=== PATIENT | male | born 1975 | race Caucasian/White ===

== ENCOUNTER 2017-02-13 08:24 | Inpatient (IN) | payer BC, MEDICARE ==
--- NOTE | ~2017-02-13 | OP ---
Record Of Operation [facility] [address] [place]. [address] NAME: JAN YA : 71 STATUS : DIS IN PAT#: [id number] AGE: 41 ADM/REG DATE : 02/13/17 MR#: [id number] REPORT SERV DATE: 03/15/17 DICTATED BY: BRITTANI VALERO II DATE: 02/16/17 REPORT STATUS : Draft TRANSCRIBED BY: MARTÍNEZ DATE: 02/16/17 DATE OF PROCEDURE: 02/13/2017 PREOPERATIVE DIAGNOSES: 1. 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 2. Failed spinal column stimulator battery. POSTOPERATIVE DIAGNOSES: 1. 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 2. Failed spinal column stimulator battery. PROCEDURE: 1. Lumbar laminectomy and facetectomy for decompression of the L4 and L5 nerve roots. 2. Interbody arthrodesis at L4-L5. 3. Application of prosthetic device at L4-L5. 4. Posterolateral arthrodesis at L4-L5. 5. Use of local autograft, allograft substitute, and bone morphogenetic protein. 6. Use of the microscope and stereotactic spinal imaging. 7. Replacement of spinal column stimulator battery generator. FLUIDS: 1600 mL LR. ESTIMATED BLOOD LOSS: 150 mL. DRAINS: One drain. COMPLICATIONS: None. IMPLANTS: Alpha-Rodrigo and a Medtronic connector. PREOPERATIVE HISTORY: This is a friendly 41-year-old gentleman, who had surgery at L5-S1 many years ago. He has also had a spinal column stimulator implanted. He came to see me regarding his back and leg pains. I discussed with him that I did not feel surgery would greatly decrease his back pain, but I feel surgery should give him a very good chance of decreasing his radiculopathy. We discussed the rates of success of the surgery to decrease back and leg pain respectively. We discussed the fact that there were risks of course. We discussed the risks. His is also a nurse and she was present for one of the two preoperative conversations. I saw him twice in the office and then of course again in preoperative holding. The plan was also to replace his battery generator and possibly the lead if testing intraoperatively determined that the lead was nonfunctional. DESCRIPTION OF PROCEDURE: After informed consent was obtained, the patient was brought to the operating room at his request and general anesthesia achieved. He was placed in the prone position and the back was prepped and draped in a sterile fashion. The stereotactic Record Of Operation [facility] [address] [place]. [address] NAME: JAN YA : 71 STATUS : DIS IN PAT#: [id number] AGE: 41 ADM/REG DATE : 02/13/17 MR#: [id number] REPORT SERV DATE: 03/15/17 DICTATED BY: BRITTANI VALERO II DATE: 02/16/17 REPORT STATUS : Draft TRANSCRIBED BY: MODEverett DATE: 02/16/17 spinal pin was placed into the right iliac crest and the intraoperative CT scan completed. Stereotactic guidance was then used throughout the remainder of the case. At this point, the minimally invasive incision was performed at L4-5. We then worked down to the hardware at L5-S1 and dissected upon the manuelito. At this point, the transverse processes were also dissected upon at L4 and L5. The medial to lateral blades were also placed. At this point with the microscope in place, we then performed the facetectomy at L4-5. A [id number] decompression was achieved. The facet was extremely hypertrophic and there was severe spinal stenosis. This took an extremely long amount of time given the severity of the stenosis. Ultimately, we were able to perform the bilateral decompression through the unilateral approach. The dura was then well visualized in the L4 and L5 nerve roots, now acceptably decompressed. Both exhibited severe compression upon them prior to the facetectomy. At this point, the interbody arthrodesis was initiated with the diskectomy. The endplates were now prepared with the pituitary rongeurs, Kerrison rongeurs, and the curettes. The area was now irrigated and punctate bleeding bone identified on both endplates. The prosthetic device was then well placed into the anterior column. We also placed local autograft into the disk space along with a small amount of bone morphogenetic protein. At this point, the pedicle screw was applied into L4 bilaterally. A percutaneous screw was used on the right. We then dissected down to the right also at the manuelito between L5 and S1. A Temnos screw manuelito connector was used. Overall, this was done for two reasons, one was to hopefully decrease the amount of dissection to remove the old hardware and secondly the old hardware appeared to be proprietary in terms of its locking nut and I did not feel that we would be able to safely or expediently remove the hardware. At this point, a repeat CT scan confirmed acceptable placement of the implants. The final tightening was performed. Next, the decortication was performed of the transverse processes of L4 and L5. Local autograft was placed along the decorticated surfaces along with allograft substitute and bone morphogenetic protein. A deep drain was placed on the left followed by a standard closure, and the patient was then extubated and transferred to PACU in stable condition. ADDENDUM At this point, the patient's spinal column stimulator system also had a replacement battery placed. The battery pocket was incised, and the previous battery was removed, and a new Medtronic stimulator battery was attached to the leads, and the system was found to be functional. At this point, the pocket was irrigated and standard closure was performed and the spinal column stimulator portion of the case was now complete. JORGITO/MARTÍNEZ Record Of [address] [address] NAME: JAN YA : 71 STATUS : DIS IN PAT#: [id number] AGE: 41 ADM/REG DATE : 02/13/17 MR#: [id number] REPORT SERV DATE: 03/15/17 DICTATED BY: BRITTANI VALERO II DATE: 02/16/17 REPORT STATUS : Draft TRANSCRIBED BY: MARTÍNEZ DATE: 02/16/17 Brittani Valero II, M.D. / [id number] / [id number] CC: Simon Cage II, MD
[~2017-02-13 08:24] MED LIST: ATEN50 PO; CELEBREX2 PO; MSCONT60 PO; OXYCODONE PO; PERCOCET1 TA4 PO; PR25 PO; PRAV10 PO; VALIUM10 MG PO; VASOTEC20 MG PO
[2017-02-13 08:51] LABS: HEMATOCRIT 41.6 % (40.0-51.0); HEMOGLOBIN 14.6 g/dL (13.6-17.8)
[2017-02-13 09:01] LABS: BUN (BLOOD UREA NITROGEN) 15 MG/DL (6-23); CHLORIDE, SERUM 107 MMOL/L (96-112); CO2 (CARBON DIOXIDE) 32 MMOL/L (24-34); CREATININE 1.01 MG/DL (0.70-1.30); GFR AFRICAN AMERICAN 105 ML/MIN (>=60); GFR NON AFRICAN AMERICAN 91 ML/MIN (>=60); GLUCOSE, SERUM 114 MG/DL (60-99); POTASSIUM, SERUM 4.8 MMOL/L (3.5-5.3); SODIUM, SERUM 143 MMOL/L (135-148)
[2017-02-15] MEDS ORDERED: MOVANTIK25 MG PO (10:04)
[2017-02-15] MEDS ORDERED: ROXICODONE30 MG PO (10:05)
== END 2017-02-15 11:13 | disposition home or self-care (01) | DRG 460 ==
LOC: SDC/OF 08:24 → PACU 16:37 → 3SO 19:28
PROVIDERS: Orthopaedic Surgery
PROC: 0SG00AJ Fusion of Lumbar Vertebral Joint with Interbody Fusion Device, Posterior Approach, Anterior Column, Open Approach (ICD-10-PCS; principal; 2017-02-13 10:15)
PROC: 4A11X4G Monitoring of Peripheral Nervous Electrical Activity, Intraoperative, External Approach (ICD-10-PCS; 2017-02-13 10:15)
DX: M48.06 Spinal stenosis, lumbar region (principal); I10 Essential (primary) hypertension; M54.17 Radiculopathy, lumbosacral region; F32.9 Major depressive disorder, single episode, unspecified; E78.5 Hyperlipidemia, unspecified; E11.9 Type 2 diabetes mellitus without complications; E66.9 Obesity, unspecified; Z79.899 Other long term (current) drug therapy; Z98.890 Other specified postprocedural states; Z83.3 Family history of diabetes mellitus; Z82.49 Family history of ischemic heart disease and other diseases of the circulatory system; Z82.3 Family history of stroke; Z82.61 Family history of arthritis; Z72.0 Tobacco use; Z68.32 Body mass index [BMI] 32.0-32.9, adult; Z79.891 Long term (current) use of opiate analgesic
CPT/HCPCS: 80048; 82962; 85014; 85018; 87641; 88300; 88304; 88311; 93005; 97116-GP; 97161-GP; A9270-GY; C1713; C1767; C1787; J0690; J1170; J2250; J2370; J2405; J2710; J3010; J3370